=== PATIENT | female | born 1955 | race Caucasian/White ===

== ENCOUNTER → 2017-07-30 | Outpatient (CLI) | payer OTHER ==
--- NOTE | 2017-07-30 19:57 | US ---
History: Elevated LDL Study: Ultrasound of the liver Comparison: None Findings: There is diffusely abnormal echogenicity compatible with fatty trace the liver. No focal li kelsey mass is demonstrated. There is appropriate flow in the hepatic artery and hepatic vein. The commo n hepatic duct measures 4 mm. The visualized right kidney is unremarkable. There is no ascites. The p ortal vein is nondistended. The gallbladder is apparently surgically absent. Impression: Fatty infiltration of the liver Reported By:
== END ==
LOC: RAD 09:11
PROVIDERS: ATTEND Internal Medicine Gastroenterology
DX: K76.0 Fatty (change of) liver, not elsewhere classified (principal)
CPT/HCPCS: 76705

== ENCOUNTER 2017-08-09 08:31 | Day surgery (SDC) | payer OTHER ==
[2017-08-09] MEDS ORDERED: D5 LR 1000 ML 0 ML IV ONE (08:57)
[2017-08-09] MEDS ORDERED: NS 1000 ML 1,000 ML ONE (09:15)
[2017-08-09] MEDS ORDERED: DIPRIVAN VIAL 20 ML ONE (10:24)
[2017-08-09 13:02] VITALS: BP 126/77
== END 2017-08-09 10:55 | disposition home or self-care (01) ==
LOC: SURG1 08:31
PROVIDERS: ATTEND Internal Medicine Gastroenterology
PROC: 0DB68ZX Excision of Stomach, Via Natural or Artificial Opening Endoscopic, Diagnostic (ICD-10-PCS; principal; 2017-08-09 14:15)
PROC: 0DJ08ZZ Inspection of Upper Intestinal Tract, Via Natural or Artificial Opening Endoscopic (ICD-10-PCS; principal; 2017-08-09 14:15)
PROC: 0D757ZZ Dilation of Esophagus, Via Natural or Artificial Opening (ICD-10-PCS; principal; 2017-08-09 14:15)
PROC: 0DB88ZX Excision of Small Intestine, Via Natural or Artificial Opening Endoscopic, Diagnostic (ICD-10-PCS; principal; 2017-08-09 14:15)
DX: R13.19 Other dysphagia (principal); R10.13 Epigastric pain; K25.9 Gastric ulcer, unspecified as acute or chronic, without hemorrhage or perforation; K29.60 Other gastritis without bleeding; K22.2 Esophageal obstruction; K44.9 Diaphragmatic hernia without obstruction or gangrene
CPT/HCPCS: A4217; J3490; J7120

== ENCOUNTER → 2017-09-19 | Outpatient (CLI) | payer OTHER ==
[~2017-09-19] MED LIST: NS 100 ML IV 100 ML IV ONE
[2017-09-19 09:20] LABS: CREATININE 0.53 mg/dL (0.55-1.02)
--- NOTE | 2017-09-19 17:16 | CT ---
HISTORY: Lower abdominal pain. Hernia. Stomach cramping. Inflammatory bowel syndrome. Swelling a nd bloating. Right-sided abdominal pain. Prior cholecystectomy. Prior hysterectomy. Study: Computed tomography of the abdomen and pelvis: Multiple axial images were obtained throughou t the abdomen and pelvis after the ingestion of oral contrast and injection of intravascular contrast per standard protocol. Comparison: Ultrasound from 07/30/2017 Findings: The lung bases show minimal interstitial scarring. No pulmonary nodules, parenchymal infiltrates or pleural effusions are noted. Minimal hypostatic changes present in the right posterior costophrenic angle as well as minimal scarring. The heart size is normal. There appears to be least mild coronar y arterial calcification in the LAD. No appreciable pericardial effusion is noted. Small hiatal her ashwini is present. Moderate fatty infiltration of the liver is noted. Moderate hepatomegaly is noted. There is a small focal area decreased density inferior aspect of the right lobe of the liver adjacent to the gallblad gris fossa, most likely areas geographic fatty sparing. The gallbladder is reportedly absent due to p rior surgery there is moderate dilatation of the common bile duct with it measuring approximately 13 mm in maximum dimension. The the pancreas is not minimally fatty infiltrated. The spleen demonstrat es a hypodense lesion measuring approximately 11 mm in maximum dimension and having Hounsfield units of slightly above fluid. This may represent a complex splenic cyst. Ultrasound is recommended. The adrenal glands are normal. The kidneys enhance normally with what appear to be tiny cortical cysts on the left and a small lesion in the lower pole of the right kidney measuring approximately 19 mm in maximum dimension. This has Hounsfield units of fluid and above there may be a complex cyst. Ultra sound is recommended. No evidence of renal calculi or hydronephrosis is noted. The abdominal aorta shows mild atherosclerotic change. No evidence of retroperitoneal lymph node enlargement or abdomina l aortic aneurysm is present. Patient appears to be status post hysterectomy. I do not clearly iden tify either ovary. The bladder contour is smooth. The vaginal cuff is symmetric. No evidence of pe lvic adenopathy is identified. A very small fat containing inguinal hernia is noted on the left. The stomach is nondistended. The duodenum is nondistended. The small bowel is nondistended. No gisela dence of mesenteric adenopathy is identified. The terminal ileum is normal. The appendix is normal. The cecum is normal. The ascending colon is normal. There is mild wall thickening of the proximal and mid transverse colon suggesting incomplete distention versus colitis. A couple of diverticula a re present. The descending colon shows a few scattered diverticula with areas of wall thickening, ag ain suggesting the possibility of colitis. The sigmoid colon is moderately thick walled and shows nu merous diverticular. I see no evidence of diverticulitis. The region of the rectum is normal. Examination of the bone windows demonstrates mild lumbar and thoracic spondylosis. The patient appea rs to most likely had a prior bladder suspension. IMPRESSION: 1. Diverticulosis of a moderate degree without evidence of diverticulitis. This predominates in the sigmoid colon. 2. Possible splenic cyst versus hamartoma. 3. Possible complex cyst in the mid to lower pole of the right kidney. Ultrasound is recommended. 4. Moderate fatty infiltration of the liver with moderate hepatomegaly. There appears to be a focal area of geographic fatty sparing adjacent to the gallbladder fossa. 5. By report the patient is status post cholecystectomy. There is a fluid-filled structure in the r egion of the gallbladder, most likely the dilated common bile duct measuring up to 13 mm in diameter. 6. Scattered areas of wall thickening of the colon, most likely due to nondistention. I cannot exclu de colitis. Clinical correlation is recommended.. Reported By:
== END ==
LOC: RAD 08:34
PROVIDERS: ATTEND Internal Medicine Gastroenterology
DX: R10.31 Right lower quadrant pain (principal); R10.32 Left lower quadrant pain; K57.30 Diverticulosis of large intestine without perforation or abscess without bleeding
CPT/HCPCS: 36415; 74177; 82565; 84520; A4222

== ENCOUNTER → 2017-11-20 | Outpatient (CLI) | payer OTHER ==
--- NOTE | 2017-11-20 11:53 | NM ---
Indication: Vomiting and pain Exam: Nuclear medicine gastric emptying scan. Technique: The patient was given 0.54 mCi of sulfur colloid mixed with solid foods and delayed images were obtained. Findings: There was prompt emptying of the stomach with no reflux seen. Anterior and posterior images were obtained of the stomach. T half-life was 10 minutes with the 88% emptying at 10 minutes. Impression: Normal gastric emptying. Reported By:
== END ==
LOC: RAD 08:35
PROVIDERS: ATTEND Internal Medicine Gastroenterology
DX: R11.2 Nausea with vomiting, unspecified (principal)
CPT/HCPCS: 78264